=== PATIENT | female | born 2000 | race African-American/Black ===

== ENCOUNTER 2018-10-13 15:38 | Outpatient (CLI) | payer OTHER ==
[~2018-10-13] VITALS: Ht 157.5 cm; Wt 88.2 kg
[2018-10-13] MEDS ORDERED: PRENTAB9 PO ×2 (15:51)
[2018-10-13 15:58] VITALS: BP 133/69
[2018-10-13 16:00] VITALS: BP 121/60
[2018-10-13 16:36] VITALS: BP 121/69
[2018-10-13 16:38] VITALS: BP 119/63
[2018-10-13] MEDS ORDERED: LACTATED RINGER'S 1000 ML IV STA (16:52)
== END 2018-10-13 20:30 | disposition home or self-care (01) ==
LOC: M LDO 15:38
PROVIDERS: ATTEND Advanced Practice Midwife
DX: O99.89 Other specified diseases and conditions complicating pregnancy, childbirth and the puerperium (principal); R42 Dizziness and giddiness; E86.0 Dehydration; Z3A.32 32 weeks gestation of pregnancy
CPT/HCPCS: 59025; G0378; G0463

== ENCOUNTER 2018-11-29 14:10 | Outpatient (CLI) | payer OTHER ==
[~2018-11-29] VITALS: Ht 157.5 cm; Wt 90.8 kg
[~2018-11-29 14:10] MED LIST: PRENTAB9 PO
[2018-11-29 14:29] VITALS: BP 133/84
--- NOTE | 2018-11-29 15:42 | IPNPDOC ---
Text Note Date of Service The patient was seen on 11/29/18. NOTE patient is a 18 yo g1 @ 39+wks gestation presents with painful contractions. denies vb/lof. +FM vitals: normal NAD fht: 150/mod carie/pos accel/no decel toco: ctx q3-5mins ce: (nursing exam) a/p patient not in active labor. discussed return precautions. back in 2-4hrs if she still has regular painful contractions for recheck. DO SHELLY Ko LUAT N. DO Nov 29, 2018 15:42
== END 2018-11-29 15:52 | disposition home or self-care (01) ==
LOC: M LDO 14:10
PROVIDERS: ATTEND Obstetrics & Gynecology
DX: O47.1 False labor at or after 37 completed weeks of gestation (principal); Z3A.39 39 weeks gestation of pregnancy
CPT/HCPCS: 59025; G0378; G0463

== ENCOUNTER 2018-11-29 19:26 | Inpatient (IN) | payer OTHER ==
[~2018-11-29] VITALS: Ht 157.5 cm; Wt 92.0 kg
[2018-11-29 19:48] VITALS: BP 130/79
[2018-11-29] MEDS ORDERED: LACTATED RINGER'S 1000 ML IV STA (20:07)
[2018-11-29] MEDS ORDERED: MORPHINE 10 MG/ML 1ML VIAL (J2270) IV ONE (20:15)
[2018-11-29] MEDS ORDERED: PROMETHAZINE INJ 25 MG/ML VIAL (J2550) IV ONE (20:15)
[2018-11-29] MEDS ORDERED: MORPHINE 10 MG/ML 1ML VIAL (J2270) IM ONE (20:15)
--- NOTE | 2018-11-29 20:21 | IPNPDOC ---
Text Note Date of Service The patient was seen on 11/29/18. NOTE patient is a 18 yo g1 @ 39+wks gestation presents with painful contractions. She was here earlier during the day and cervix checked to be 2cm. denies vb/lof. +FM vitals: normal NAD fht: 120/mod carie/pos accel/no decel toco: ctx q3-5mins ce: 2 (nursing exam) a/p patient not in active labor. discussed option of going home and continue to wait for active labor vs. pain medication on l&d and recheck once patient wakes up. If patient not in active labor when she wakes up then patient would go home at rosas time. patient desires to have IV pain medication and recheck. start IV, bolus 1L with 125cc/hr maintenance morphine 5/5 phenergan 12.5cc IV VS,Fishbone, I+O VS, Fishbone, I+O Vital Signs Date Time Temp Pulse Resp B/P (MAP) Pulse Ox O2 Delivery O2 Flow Rate FiO2 11/29/18 19:48 98.3 105 18 130/79 (96) DOMINIC BRAVO DO Nov 29, 2018 20:21
[2018-11-29] MEDS: LR 1,000 ML IV SCH (20:30)
[2018-11-29 20:37] LABS: HEMATOCRIT 34.8 % (36.0-47.0); MEAN CORPUSCULAR HEMOGLOBIN 30.1 pg (27.0-33.0); MEAN CORPUSCULAR HGB CONC 31.6 g/dl (32.0-36.5); MEAN CORPUSCULAR VOLUME 95.3 fl (80.0-96.0); PLATELET COUNT, AUTOMATED 359 10^3/uL (150-450); RED BLOOD COUNT 3.65 10^6/uL (4.00-5.40); WHITE BLOOD COUNT 11.2 10^3/uL (4.0-10.0)
[2018-11-29 21:50] VITALS: BP 123/68
[2018-11-30] VITALS (42 sets, daily range): BP systolic 101–181; BP diastolic 50–86
[2018-11-30] MEDS ORDERED: NALBUPHINE HCL 10 MG/ML AMP (J2300) IV ONE (01:30)
[2018-11-30] MEDS ORDERED: NALBUPHINE HCL 10 MG/ML AMP (J2300) IM ONE (01:30)
[2018-11-30] MEDS ORDERED: PROMETHAZINE INJ 25 MG/ML VIAL (J2550) IV ONE (01:30)
--- NOTE | 2018-11-30 01:50 | HPEPDOC ---
Obstetrical History & Physical General Date of Admission Nov 30, 2018 at 01:03 History of Present Illness patient is a 18 yo G1 @39+3wks gestation presented to L&D for painful contractions. She spontaneously ruptured membrane while being observed on IV pain medication. SROM around 0050, clear. 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 Past Medical History Medical History denies Surgical History: Other (lap dylan) Family History Significant Family History: No pertinent family hx Social History Marital Status: Family situation: Spouse/partner home Psychosocial History: No pertinent psych hx * Smoker: non-smoker Alcohol: Denies Drugs: denies Imunizations Tdap status: current Influenza Status: needs Allergies Coded Allergies: No Known Allergies (Unverified , 11/29/18) NKA Medications Scheduled No.137/Iron/Folic Acd ( Vitamin Tablet) 1 Each Tablet, 1 TAB PO DAILY Physical Examination Physical Examination GENERAL: Alert and oriented times three. BREAST: . ABDOMEN: Gravid and non-tender to touch. FETUS: Is vertex (VTX) by sterile vaginal examination (SVE), fetus is vertex (VTX) by French. HEART RATE: Regular rate and rhythm. LUNGS: Clear to auscultation (CTA). EXTREMITIES: No edema. No clonus. Deep tendon reflexes (DTRs) + . Vital Signs/I&O Vital Signs Date Time Temp Pulse Resp B/P (MAP) Pulse Ox O2 Delivery O2 Flow Rate FiO2 11/29/18 21:28 18 11/29/18 19:48 98.3 105 130/79 (96) I&O- Last 24 Hours up to 6 AM 11/30/18 06:00 Intake Total 1000 ml Balance 1000 ml Laboratory Data 24H LABS Laboratory Tests 2 11/29/18 20:24: Nucleated Red Blood Cells % (auto) 0.0 11/30/18 01:10: Serology Scanned Report Hepatitis B Testing CBC/BMP Laboratory Tests 11/29/18 20:24 Red Blood Count 3.65 L, Mean Corpuscular Volume 95.3, Mean Corpuscular Hemoglobin 30.1, Mean Corpuscular Hemoglobin Concent 31.6 L, Red Cell Distrib ution Width 13.5 Pertinent Laboratoy Data Blood Type: O+ RBC Antibody Screen: Negative HIV: Negative Hepatitis B: Negative Hepatitis C: Negative Rapid Plasma Reagin: Nonreactive Rubella: Immune Chlamydia/Gonorrhea: Negative Group B Streptococcus: Negative ([id number]) Glucose Tolerance Test: 135 (80/156/154/93) Anatomy Ultrasound Placenta Location: Posterior Normal Anatomy: Yes Placenta Previa: No Vaginal Examination Dilation: 3 cm Effacement: 90% Station: -2 Cervical Consistency: Soft Cervical Position: Middle Presentation: Cephalic presentation Assessment Heart Rate (FHR): 135 Variability: Moderate Accelerations: Positive Decelerations: None Tocometer Contractions: Yes Frequency: regular Strength: palpated as moderate Assessment/Plan Assessment Patient is a 18 yo g1 @39+3wks gestation rupture membranes at term. Plan Admit and orient. 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 Diet: clear Group B Streptococcus (GBS) negative Labs and intravenous (IV) per unit protocol. Counseled on Pitocin as needed for augmentation of labor. Lactated Ringers (LR): 125cc for maintenance fluid pain management per patient Anticipate normal spontaneous delivery (). Labor and Delivery Counseling patient counseled on risk of emergent section, operative vaginal delivery with forceps or vacuums, infection requiring antibiotics and prolonged hospital stay, bleeding needing blood transfusion. Risk of blood transfusion to include but not limited to anaphylactic reaction, transmission of blood borne pathogens such as hepatitis and HIV. Discussed monitoring with external mon itors and internal monitors as needed. DOMINIC BRAVO DO Nov 30, 2018 01:50
[2018-11-30] MEDS ORDERED: FENTANYL 2MCG/ML ROPIVACAINE 0.2% IN 0.9% NACL 100ML IVBAG As Ordered ONE (04:08)
[2018-11-30] MEDS ORDERED: NALOXONE INJ 0.4 MG/1 ML VIAL (J2310) IV PRN (04:46)
[2018-11-30] MEDS ORDERED: ONDANSETRON 4MG/2ML VIAL (J2405) IV PRN (04:46)
[2018-11-30] MEDS ORDERED: FENTANYL/ROPIVACAINE/NACL BAG 100 ML EPIDURAL SCH (04:46)
[2018-11-30] MEDS ORDERED: EPIDURAL/PCA KEYS XX PRN (04:46)
[2018-11-30] MEDS ORDERED: LACTATED RINGER'S 1000 ML IV PRN (04:46)
[2018-11-30] MEDS ORDERED: diphenhydrAMINE INJ 50MG/ML VIAL (J1200) IV PRN (04:46)
[2018-11-30] MEDS ORDERED: REFRIGERATOR IV KEYS XX PRN (04:46)
[2018-11-30] MEDS ORDERED: ePHEDrine SULFATE 25 MG/5 ML(5MG/ML) SYRINGE IV PRN (04:46)
[2018-11-30] MEDS ORDERED: EPIDURAL COMMENT XX SCH (04:46)
[2018-11-30] MEDS ORDERED: ePHEDrine SULFATE 25 MG/5 ML(5MG/ML) SYRINGE As Ordered ONE (05:12)
[2018-11-30] MEDS ORDERED: OXYTOCIN DRIP 30 UNITS in IV 1 EA IV SCH (08:00)
--- NOTE | 2018-11-30 08:06 | IPN ---
DATE: 11/30/2018 This 18-year-old 1 at 39 plus 3 weeks of gestation admitted to labor and delivery with painful contractions. She had a spontaneous rupture of membranes and clear Liqua. Group B Streptococcus (GBS) was negative and she was initially give IV pain medications with request for an epidural. Her contractions have spaced out to 5-7 minutes apart with no real intensity. On examination, 2 hours after epidural, she is about 6 cm, -3 station, occiput transverse, clear Liqua. No molding is noted. Category 1 strip at the present time. Blood pressure is 130/79, respirations are 18, pulse is 100 and her temperature is 98.3. Our plan, at the present time, is to hydrate her and commence pitocin augmentation in order to establish adequate and appropriate contractions. Save to proceed.
[2018-11-30] MEDS: LR 1,000 ML IV SCH (11:10)
[2018-11-30 15:06] LABS: CORD GAS ABE V -6.4; CORD GAS PCO2 V 37.8 mmHg; CORD GAS PH V 7.32 UNITS; CORD GAS PO2 V 29.7 mmHg; CORD GAS SBC V 18.7 MEQ/L; CORD GAS TCO2 V 20.2 MEQ/L
[2018-11-30] MEDS: OXYTOCIN DRIP 30 UNITS in IV 1 EA IV SCH ×2 (15:25→19:25)
[2018-11-30] MEDS ORDERED: MOM 30ML SUSPENSION UDC PO PRN (15:30)
[2018-11-30] MEDS ORDERED: IBUPROFEN 600 MG TAB PO PRN (15:30)
[2018-11-30] MEDS ORDERED: RHOGAM 300 MCG (1500 IU) INJ (J2790) IM SCH (15:30)
[2018-11-30] MEDS ORDERED: MEASLES,MUMPS,RUBELLA VACCINE INJ (MMR-II) (90707) SC SCH (15:30)
[2018-11-30] MEDS ORDERED: ACETAMINOPHEN TAB 650MG DOSE (2X325MG) PO PRN (15:30)
[2018-11-30] MEDS ORDERED: ACETAMINOPHEN 500 MG TAB PO PRN (15:30)
[2018-11-30] MEDS ORDERED: DIBUCAINE 1% OINTMENT 30GM TOP PRN (15:30)
[2018-11-30] MEDS ORDERED: DOCUSATE SODIUM 100 MG CAP PO PRN (15:30)
[2018-11-30] MEDS ORDERED: OXYTOCIN INJ 10 UNITS/ML VIAL (J2590) IV ONE (15:30)
[2018-11-30] MEDS ORDERED: METHYLERGONOVINE MALEATE 0.2 MG TAB PO PRN (15:30)
--- NOTE | 2018-11-30 16:22 | IPN ---
DATE: 11/30/2018 This lady is presently at 9 cm dilatation with intermittent variables and occasional late decelerations and contractions. The pattern seems to be appropriate on 2 milliunits of Pitocin. The cervix itself is circumferentially 9 cm with the anterior lip very swollen. Baby' is in the left occiput transverse (LOT) synclitic position. No molding is present. However, the baby's head does not seem to negotiate in order to allow complete dilatation of the cervix. Our plan of management is to attempt to push back the cervix with good contractions. The lady is actually pushing well but the cervix is so tight will not negotiate over the baby's head. Our plan now is to increase Pitocin, monitor. If she still has persistent cervix or failure to dilate in the next 1/2 hour to an hour, then we will offer her section unless there is a nonreassuring heart tones in which we will offer it sooner. The patient expressed understanding of the plan of care. SUNI
[2018-11-30] MEDS: IBUPROFEN 800 MG TAB PO PRN (22:01)
[2018-12-01 06:00] VITALS: BP 119/69
[2018-12-01 07:29] LABS: HEMATOCRIT 27.3 % (36.0-47.0); MEAN CORPUSCULAR HEMOGLOBIN 30.9 pg (27.0-33.0); MEAN CORPUSCULAR HGB CONC 32.2 g/dl (32.0-36.5); MEAN CORPUSCULAR VOLUME 95.8 fl (80.0-96.0); PLATELET COUNT, AUTOMATED 258 10^3/uL (150-450); RED BLOOD COUNT 2.85 10^6/uL (4.00-5.40); WHITE BLOOD COUNT 15.5 10^3/uL (4.0-10.0)
[2018-12-01 07:44] LABS: HEMOGLOBIN 8.8 g/dl (12.0-15.5)
--- NOTE | 2018-12-01 08:33 | IPN ---
DATE OF SERVICE: 12/01/2018 day #1. 18-year-old 1 now para 1 admitted at 39 and 3 weeks with contractions. Had a spontaneous vaginal delivery of male 8 pounds 9 ounces, 3890 grams. of 7 and 9 at one and five minutes respectfully. A venous pH 7.32, base excess -6.4. She had a small vaginal tear on the left side which was repaired in the usual fashion. Her admitting hemoglobin was 11.0, hematocrit 34.8 and platelets are 359. She will have a day #2 hemoglobin tomorrow. Her vital signs this morning: Her blood pressure is 130/72, respirations are 20, pulse 113, temperature is not recorded. We discussed phlebitis, cystitis, mastitis, endometritis, cellulitis, diet, exercise, pain management, perineal breast and wound care. She is presently breast-feeding and doing well. She is mobilizing, passing gas and voiding. The rest of the examination unremarkable. She is normocephalic, atraumatic. Neck: Full range of motion. Pupils equal and reactive to light. No complaints of cough, wheezes, shortness of breath or dyspnea on exertion. No nausea, vomiting, diarrhea or constipation. She has no rashes, lesions or pruritus. No arthralgia or myalgia. In summary, we have a term gestation delivered a live male . Planning on discharge tomorrow. Circumcision after being evaluated by pediatrics.
--- NOTE | 2018-12-01 08:42 | IPN ---
DATE OF SERVICE: 11/30/2018 This patient and requested circumcision of their male . After discussing risks and benefits of circumcision, medical and nonmedical indications, penile block and aftercare, expressed understanding penile block and aftercare, signed the consent form. All questions were answered. 20-minute discussion. We await clearance by the gate attendant.
[2018-12-01] MEDS: PRENATAL VITAMINS CHEWABLE TABLET PO SCH ×2 (09:00→09:58)
--- NOTE | 2018-12-01 10:55 | DN ---
DATE OF DELIVERY: 11/30/2018 This lady is a 18-year-old 1 who was admitted with contractions at 39 and 3 weeks of gestation. She had some significant contractions which caused her significant amount of pain and was given IV meds, subsequently asked for an epidural. She eventually got fully dilated after pushing away the anterior lip and with moderately good intense contractions on 2 milliunits of Pitocin. She finally did a spontaneous vaginal delivery of a live male infant weighing 8 pounds 9 ounces, 3890 grams. of 7 and 9 at one and five minutes respectfully. Baby had meconium in his nose and his mouth. Suction at the perineum was done and then suction at the table. Dr. Lira was called in attendance for resuscitation. Venous pH was 7.32, base excess -6.4. Placenta had three-vessels, spontaneous vaginal delivery of the placenta. Uterus contracted well down on Pitocin. On examination, anterior, posterior, lateral patel were complete. Sphincter was tight. No lesions or tears. There was a vaginal blood vessel on the left side. It was oversewn with #2-0 Vicryl on a J339. Hemostasis was complete. On massage of the uterus, there was no extra bleeding. The patient and baby tolerating procedure well.
[2018-12-01] MEDS: IBUPROFEN 800 MG TAB PO PRN (15:42)
[2018-12-01 18:12] VITALS: BP 102/58
[2018-12-02 05:51] VITALS: BP 115/58
[2018-12-02] MEDS ORDERED: DIBU10OI TOP (06:18)
[2018-12-02] MEDS ORDERED: IBUP80TA PO (06:18)
[2018-12-02] MEDS ORDERED: ACET1TAB55 PO (06:18)
--- NOTE | 2018-12-02 06:20 | DS.PDOC ---
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 She underwent an uncomplicated on that same day. She met all appropriate discharge criteria on PPD#2. She was ambulating without problems, had minimal lochia, had minimal pain, was tolerating PO, and was voiding spontaneously. DISCHARGE MEDICATIONS: Please see below. ALLERGIES: Please see below. PHYSICAL EXAMINATION ON DISCHARGE: VITAL SIGNS: Please see below. GENERAL: AAOX3, sitting up in bed, NAD ABDOMINAL EXAMINATION: Fundus firm at U-2. No fundal tenderness. EXTREMITIES: No edema PSYCHIATRIC EXAMINATION: Affect appropriate. LABORATORY DATA: Please see below. ACTIVITY: Pelvic rest for 6 weeks DIET: Regular DISCHARGE PLAN: Discharge home DISPOSITION: Discharge home on 02Dec2018. DISCHARGE INSTRUCTIONS: 1. Pelvic rest for 6 weeks. ITEMS TO FOLLOWUP ON ON OUTPATIENT: 1. appointment DISCHARGE CONDITION: Stable. TIME SPENT ON DISCHARGE: Greater than 20 minutes. Duane Ha DO Vital Signs/I&Os Vital Signs Date Time Temp Pulse Resp B/P (MAP) Pulse Ox O2 Delivery O2 Flow Rate FiO2 12/02/18 05:51 97.4 82 18 115/58 (77) Laboratory Data Labs 24H Laboratory Tests 2 12/01/18 07:14: Nucleated Red Blood Cells % (auto) 0.0 CBC/BMP Laboratory Tests 12/01/18 07:14 Red Blood Count 2.85 L, Mean Corpuscular Volume 95.8, Mean Corpuscular Hemoglobin 30.9, Mean Corpuscular Hemoglobin Concent 32.2, Red Cell Distribution Width 14.0 Discharge Medications Scheduled No.137/Iron/Folic Acd ( Vitamin Tablet) 1 Each Tablet, 1 TAB PO DAILY, (Reported) Scheduled PRN Acetaminophen (Acetaminophen) 325 Mg Tablet, 650 MG PO Q4HP PRN for PAIN SCALE 1-5 Dibucaine (Dibucaine) 28 Gm Oint...g., 0 DOSE TOP Q4HP PRN for PAIN Ibuprofen (Ibuprofen) 800 Mg Tablet, 800 MG PO Q8HP PRN for PAIN SCALE 6-10 Allergies Coded Allergies: No Known Allergies (Unverified , 11/29/18) DUANE CARRASQUILLO DO Dec 02, 2018 06:20
[2018-12-02] MEDS ORDERED: INFLUENZA QUADRIVALENT PF VACCINE 0.5ML SYRINGE (90686) IM ONE (09:00)
[2018-12-02] MEDS: PRENATAL VITAMINS CHEWABLE TABLET PO SCH (09:30)
== END 2018-12-02 12:05 | disposition home or self-care (01) | DRG 807 ==
LOC: M LDO 19:26 → M LDI 11-30 01:03 → M OBS 11-30 17:22
PROVIDERS: ADMIT Obstetrics & Gynecology; ATTEND Obstetrics & Gynecology
PROC: 10E0XZZ Delivery of Products of Conception, External Approach (ICD-10-PCS; principal; 2018-11-30)
PROC: 0HQ9XZZ Repair Perineum Skin, External Approach (ICD-10-PCS; 2018-11-30)
DX: O70.0 First degree perineal laceration during delivery (principal); Z37.0 Single live birth; Z3A.39 39 weeks gestation of pregnancy; O77.0 Labor and delivery complicated by meconium in amniotic fluid